=== PATIENT | male | born 1970 | race Caucasian/White ===

== ENCOUNTER 2016-08-26 16:02 | Emergency (ER) | payer OTHER ==
[~2016-08-26] VITALS: Ht 170.2 cm; Wt 63.0 kg
[2016-08-26 21:15] LABS: CLARITY URINE CLEAR (CLEAR); COLOR URINE YELLOW (YELLOW); GLUCOSE URINE NEGATIVE (NEGATIVE); KETONES URINE NEGATIVE (NEGATIVE); LEUKOCYTE ESTERASE URINE NEGATIVE (NEGATIVE); NITRITE URINE NEGATIVE (NEGATIVE); OCCULT BLOOD URINE NEGATIVE (NEGATIVE); PH URINE >=9.0 (4.5-8.0); PROTEIN URINE NEGATIVE (NEGATIVE); SPECIFIC GRAVITY URINE 1.014 (1.005-1.030); UROBILINOGEN URINE 0.2 E.U./dL (0.2-1.0)
[2016-08-26] MEDS ORDERED: KETOROLAC 60MG/2ML VIAL IM ONE (21:15)
[2016-08-26 21:27] VITALS: BP 136/92
== END 2016-08-26 22:40 | disposition home or self-care (01) ==
LOC: ER 16:06
DX: M54.5 Low back pain (principal)
CPT/HCPCS: 81003; 96372; 99283; J1885